=== PATIENT | male | born 1965 ===

== ENCOUNTER 2019-11-06 08:57 | Inpatient (IN) | payer BC ==
[2019-11-06] VITALS (12 sets, daily range): BP systolic 126–146; BP diastolic 63–96
[~2019-11-06] VITALS: Ht 175 cm; Wt 107.2 kg
[~2019-11-06 08:57] MED LIST: AMOX500C2 PO; CPR500T PO; KCL20TCR PO; METR500T PO; OMEP20CA6 PO; TRM50T PO
[2019-11-06 09:36] LABS: BASOPHILS % (AUTO) 0 % (0-10); EOSINOPHILS % (AUTO) 0 % (0-10); HEMATOCRIT 46 % (40-54); LYMPHOCYTES # (AUTO) 1.1 X 10^3 (1.0-4.0); LYMPHOCYTES % (AUTO) 10 % (12-44); MEAN CORPUSCULAR HEMOGLOBIN 29 PG (25-34); MEAN CORPUSCULAR HGB CONC 35 G/DL (32-36); MEAN CORPUSCULAR VOLUME 85 FL (80-99); MEAN PLATELET VOLUME 9.7 FL (7.4-10.4); MONOCYTES # (AUTO) 0.8 X 10^3 (0.0-1.0); MONOCYTES % (AUTO) 7 % (0-12); NEUTROPHILS # (AUTO) 8.9 X 10^3 (1.8-7.8); NEUTROPHILS % (AUTO) 83 % (42-75); PLATELET COUNT 259 10^3/uL (130-400); RED CELL DISTRIBUTION WIDTH 12.8 % (10.0-14.5); WHITE BLOOD COUNT 10.8 10^3/uL (4.3-11.0)
[2019-11-06 09:50] LABS: ALBUMIN 3.6 GM/DL (3.2-4.5); CHLORIDE 105 MMOL/L (98-107); POTASSIUM 3.8 MMOL/L (3.6-5.0); SODIUM 138 MMOL/L (135-145)
--- NOTE | 2019-11-06 09:50 | NUR ---
[employer] NOTIFIED THIS PT WILL NEED A ICU BED WHEN HE IS ADMITTED.
[2019-11-06 09:51] LABS: CALCIUM 8.7 MG/DL (8.5-10.1)
[2019-11-06 09:52] LABS: GLUCOSE 124 MG/DL (70-105); TOTAL PROTEIN 7.3 GM/DL (6.4-8.2)
[2019-11-06 09:53] LABS: CARBON DIOXIDE 22 MMOL/L (21-32)
[2019-11-06 09:54] LABS: BILIRUBIN,TOTAL 0.6 MG/DL (0.1-1.0)
--- NOTE | 2019-11-06 09:55 | ED General ---
General Chief Complaint: Respiratory Problems Stated Complaint: COVID+ Nursing Triage Note: ARRIVED VIA AMB TO COVID ER. SICK X10 DAYS ET WORSE SOA IN THE LAST TWO. COVID POSITIVE ET WAS TESTED LAST WEEK. PT STATES HE WORKS AT [employer] [place] . 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 Symptoms are worsening with increased shortness of breath and pleuritic chest pain. He is very tachypneic on exam with respiration rate around 50 breaths per minute. Oxygen saturation is running 89-90 percent on room air. Patient denies having any other significant health issues. 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 Allergies and Home Medications Allergies Coded Allergies: No Known Drug Allergies (Unverified , 11/06/19) Patient Home Medication List Home Medication List Reviewed: Yes Review of Systems Review of Systems Constitutional: no symptoms reported EENTM: no symptoms reported Respiratory: see HPI Cardiovascular: other (tachycardia) Gastrointestinal: no symptoms reported Genitourinary: no symptoms reported Musculoskeletal: other (upper body myalgias) Skin: no symptoms reported Psychiatric/Neurological: No Symptoms Reported Hematologic/Lymphatic: No Symptoms Reported Immunological/Allergic: no symptoms reported Past Gbnpnhl-Rwwxhc-Wnzqou Hx Past Med/Social Hx: Reviewed Nursing Past Med/Soc Hx Patient Social History Recent Foreign Travel: No Contact w/Someone Who Travel: No Recent Infectious Disease Expo: No Recent Hopitalizations: No Seasonal Allergies Seasonal Allergies: No Past Medical History Surgeries: Yes Abdominal Respiratory: No Cardiac: No Neurological: No Genitourinary: No Gastrointestinal: Yes (GASTRITIS) Endocrine: No HEENT: No Cancer: No Psychosocial: No Integumentary: No Physical Exam-Suspected Sepsis Physical Exam Vital Signs Vital Signs - First Documented 11/06/19 09:00 Temp 36.9 Pulse 95 Resp 55 B/P (MAP) 141/103 (116) Pulse Ox 95 O2 Delivery Nasal Cannula O2 Flow Rate 5.00 Capillary Refill : Less Than 3 Seconds Blood Pressure Mean: 116 Height, Weight, BMI Height: '" Weight: lbs. oz. 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 as Tested Skin: normal color, warm/dry Focused Exam Lactate Level 11/06/19 09:25: Lactic Acid Level 0.93 Lactic Acid Level Laboratory Tests Test 11/06/19 09:25 Lactic Acid Level 0.93 MMOL/L (0.50-2.00) Progress/Results/Core Measures Suspected Sepsis Recent Fever Within 48 Hours: No Infection Criteria Present: Suspected New Infection New/Unexplained Altered Menta: No Sepsis Screen: Possible Sepsis Risk SIRS Temperature: Pulse: 95 Respiratory Rate: 55 Laboratory Tests 11/06/19 09:25: White Blood Count 10.8 Blood Pressure 141 /103 Mean: 116 11/06/19 09:25: Lactic Acid Level 0.93 Laboratory Tests 11/06/19 09:25: Creatinine 0.82, INR Comment 1.0, Platelet Count 259, Total Bilirubin 0.6 Results/Orders Lab Results Laboratory Tests Test 11/06/19 09:25 Range/Units White Blood Count 10.8 4.3-11.0 10^3/uL Red Blood Count 5.45 4.35-5.85 10^6/uL Hemoglobin 16.0 13.3-17.7 G/DL Hematocrit 46 40-54 % Mean Corpuscular Volume 85 80-99 FL Mean Corpuscular Hemoglobin 29 25-34 PG Mean Corpuscular Hemoglobin Concent 35 32-36 G/DL Red Cell Distribution Width 12.8 10.0-14.5 % Platelet Count 259 130-400 10^3/uL Mean Platelet Volume 9.7 7.4-10.4 FL Neutrophils (%) (Auto) 83 H 42-75 % Lymphocytes (%) (Auto) 10 L 12-44 % Monocytes (%) (Auto) 7 0-12 % Eosinophils (%) (Auto) 0 0-10 % Basophils (%) (Auto) 0 0-10 % Neutrophils # (Auto) 8.9 H 1.8-7.8 X 10^3 Lymphocytes # (Auto) 1.1 1.0-4.0 X 10^3 Monocytes # (Auto) 0.8 0.0-1.0 X 10^3 Eosinophils # (Auto) 0.0 0.0-0.3 10^3/uL Basophils # (Auto) 0.0 0.0-0.1 10^3/uL Prothrombin Time 13.4 12.2-14.7 SEC INR Comment 1.0 0.8-1.4 Activated Partial Thromboplast Time 30 24-35 SEC D-Dimer 1.15 H 0.00-0.49 UG/ML Sodium Level 138 135-145 MMOL/L Potassium Level 3.8 3.6-5.0 MMOL/L Chloride Level 105 98-107 MMOL/L Carbon Dioxide Level 22 21-32 MMOL/L Anion Gap 11 5-14 MMOL/L Blood Urea Nitrogen 7 7-18 MG/DL Creatinine 0.82 0.60-1.30 MG/DL Estimat Glomerular Filtration Rate > 60 BUN/Creatinine Ratio 9 Glucose Level 124 H 70-105 MG/DL Lactic Acid Level 0.93 0.50-2.00 MMOL/L Calcium Level 8.7 8.5-10.1 MG/DL Corrected Calcium 9.0 8.5-10.1 MG/DL Total Bilirubin 0.6 0.1-1.0 MG/DL Aspartate Amino Transf (AST/SGOT) 126 H 5-34 U/L Alanine Aminotransferase (ALT/SGPT) 122 H 0-55 U/L Alkaline Phosphatase 83 40-136 U/L Lactate Dehydrogenase 585 H 125-220 U/L C-Reactive Protein High Sensitivity 19.34 H 0.00-0.50 MG/DL Total Protein 7.3 6.4-8.2 GM/DL Albumin 3.6 3.2-4.5 GM/DL Procalcitonin 0.16 H <0.10 NG/ML My Orders Junior - COLLIN KNIGHT MD Fibrin Degradation Products (11/06/19 09:25) Procalcitonin (Pct) (11/06/19 09:25) Hs C Reactive Protein (11/06/19 09:25) LDH (11/06/19 09:25) Cbc With Automated Diff (11/06/19 09:25) Comprehensive Metabolic Panel (11/06/19 09:25) Blood Culture (11/06/19 09:25) Sputum Culture (11/06/19 09:25) Protime With Inr (11/06/19 09:25) Partial Thromboplastin Time (11/06/19 09:25) Ed Iv/Invasive Line Start (11/06/19 09:25) Vital Signs Adult Sepsis Patie Q15M (11/06/19 09:25) O2 (11/06/19 09:25) Remove Rings In Anticipation O (11/06/19 09:25) Lactic Acid Analyzer (11/06/19 09:25) Acetaminophen Tablet (Tylenol Tablet) (11/06/19 10:00) Covid-19 External Lab Results (11/06/19 10:14) Isolation Central Supply Req (11/06/19 10:14) Ct Angio Chest W (11/06/19 10:28) Iohexol Injection (Omnipaque 350 Mg/Ml 1 (11/06/19 10:45) Received Contrast (Hold Metformin- Contr (11/06/19 10:45) Sodium Chloride Flush (Catheter Flush Sy (11/06/19 10:45) Ns (Ivpb) (Sodium Chloride 0.9% Ivpb Bag (11/06/19 10:45) Iohexol Injection (Omnipaque 350 Mg/Ml 1 (11/06/19 10:45) Ns (Ivpb) (Sodium Chloride 0.9% Ivpb Bag (11/06/19 10:45) Medications Given in ED Current Medications Medications Dose Ordered Sig/Clayton Route Start Time Stop Time Status Last Admin Dose Admin Acetaminophen 1,000 mg ONCE ONCE PO 11/06/19 10:00 11/06/19 10:01 DC 11/06/19 10:10 1,000 MG Iohexol 100 ml ONCE ONCE IV 11/06/19 10:45 11/06/19 10:46 DC 11/06/19 10:49 83 ML Sodium Chloride 100 ml ONCE ONCE IV 11/06/19 10:45 11/06/19 10:46 DC 11/06/19 10:51 80 ML Vital Signs/I&O 11/06/19 11/06/19 11/06/19 09:00 09:00 12:46 Temp 36.9 Pulse 95 71 Resp 55 16 B/P (MAP) 141/103 (116) 126/87 Pulse Ox 95 91 96 O2 Delivery Nasal Cannula Nasal Cannula O2 Flow Rate 5.00 5.00 Capillary Refill : Less Than 3 Seconds Blood Pressure Mean: 116 Progress Note : Progress Note Patient remained stable on oxygen by nasal cannula at 4 L/m. Labs were consistent with COVID-19 patterns. D-dimer was elevated and CT angiogram was obtained. There were no pulmonary emboli. CT findings consistent with pneumonia and/or COVID-19. Case was discussed with Dr. Elias who will likely start steroids and antiviral therapy in the ICU. Diagnostic Imaging Diagonstic Imaging: CT Plain Films/CT/US/NM/MRI: chest Comments CT angiogram of the chest viewed by me and report reviewed. Discussed with the radiologist. See report below: NAME: TREVON GALICIA REC#: [id number] PT STATUS: REG ER : 1965 PHYSICIAN: COLLIN KNIGHT MD ADMIT DATE: 11/06/19/ER Signed Date of Exam:11/06/19 CT ANGIO CHEST W PROCEDURE: CT angiography of the chest with contrast. TECHNIQUE: Multiple contiguous axial images were obtained through the chest after uneventful bolus administration of intravenous contrast. 3D reconstructed CTA MIP acquisitions were also performed. Auto Exposure Controls were utilized during the CT exam to meet ALARA standards for radiation dose reduction. INDICATION: Shortness of breath, dyspnea Study compared to 08/08/2013. There are extensive 5 lobe largely groundglass pulmonary infiltrates. Within the right greater than left lower lobes there is some jacob airspace consolidation as well as scattered zones of volume loss and subsegmental atelectasis. There is no associated pleural effusion. No pneumatocele. No bronchiectasis. No blebs or bullous disease. Lung volumes symmetric and within normal limits. Some mild bilateral likely reactive hilar lymphadenopathy. The aorta is patent and nonaneurysmal. There is no pleural or pericardial effusion. There is a small hiatal hernia. Visualized upper abdomen revealed no free fluid, free air or obstructive features. The pulmonary arterial branches patent no evidence for PE IMPRESSION: Extensive 5 lobe largely groundglass infiltrates as a nonspecific finding but can be compatible with multifocal pneumonia on the basis of the known COVID-positivity. In addition there is some airspace dependent consolidative changes in both lower lobes as well as mild likely reactive lymphadenopathy and no chest effusion. Negative for pulmonary embolus. Dictated by: Dictated on workstation # [id number] Dict: 11/06/19 1106 Trans: 11/06/19 1135 [facility] [id number] Interpreted by: GAEL VELÁZQUEZ Electronically signed by: GAEL VELÁZQUEZ 11/06/19 1135 Departure Communication (Admissions) Time/Spoke to Admitting Phy: 11:45 Dr. Lockwood Time/Spoke to Consulting Phy: 11:38 Dr. Elias Impression Primary Impression: Coronavirus infection Additional Impression: Respiratory failure Qualified Codes: J96.01 - Acute respiratory failure with hypoxia Disposition: ADMITTED INPATIENT Condition: Stable Admissions Decision to Admit Reason: Admit from ER (General) Decision to Admit/Date: Nov 06, 2019 Time/Decision to Admit Time: 09:20 COLLIN KNIGHT MD Nov 06, 2019 09:55
[2019-11-06 09:56] LABS: ALKALINE PHOSPHATASE 83 U/L (40-136); CREATININE SERUM 0.82 MG/DL (0.60-1.30); GFR ESTIMATED > 60
[2019-11-06 09:57] LABS: BUN/CREATININE RATIO 9; FIBRIN DEGRADATION PRODUCTS 1.15 UG/ML (0.00-0.49); PROTHROMBIN TIME PATIENT 13.4 SEC (12.2-14.7)
[2019-11-06 09:59] LABS: ALANINE AMINOTRANSFERASE 122 U/L (0-55)
[2019-11-06] MEDS ORDERED: ACETAMINOPHEN 500 MG TAB (TYLENOL) PO ONE (10:00)
--- OUTSIDE RECORDS SUMMARY | 2019-11-06 10:05 | XMS REPORT | Continuity of Care Document ---
Author Organization Unknown Address Unknown Phone Unavailable Allergies There is no data. Medications There is no data. Problems There is no data. Procedures There is no data. Results There is no data. Encounters ACCT No. Visit Date/Time Discharge Status Pt. Type Provider Facility Loc./Unit Complaint [id number] 08/04/2013 14:10:00 00:01:00 DIS Outpatient [id number] 08/18/2013 09:07:00 23:59:59 CLS Outpatient [id number] 08/08/2013 08:45:00 23:59:59 CLS Outpatient
--- NOTE | 2019-11-06 10:20 | NUR ---
PT RESTING IN BED. RESP APPX 40/MIN. PULSE OX 96% ON 2L. MESSAGE LEFT FOR DR KNIGHT ABOUT THE HIGH D-DIMER. PT DENIES NEEDS AT THIS TIME.
[2019-11-06] MEDS ORDERED: HOLD METFORMIN - RECEIVED CONTRAST 20 ML VIAL IV SCH ×2 (10:45)
[2019-11-06] MEDS ORDERED: CATHETER FLUSH 10 ML SYR IV PRN (10:45)
[2019-11-06] MEDS ORDERED: IOHEXOL 350 MG/ML 100 ML (OMNIPAQUE 350) VIAL IV ONE ×2 (10:45)
[2019-11-06] MEDS ORDERED: NS 100 ML (IVPB) BAG IV ONE ×2 (10:45)
--- NOTE | 2019-11-06 11:14 | Diagnostic Imaging Report ---
PROCEDURE: CT angiography of the chest with contrast. TECHNIQUE: Multiple contiguous axial images were obtained through the chest after uneventful bolus administration of intravenous contrast. 3D reconstructed CTA MIP acquisitions were also performed. Auto Exposure Controls were utilized during the CT exam to meet ALARA standards for radiation dose reduction. INDICATION: Shortness of breath, dyspnea Study compared to 08/08/2013. There are extensive 5 lobe largely groundglass pulmonary infiltrates. Within the right greater than left lower lobes there is some jacob airspace consolidation as well as scattered zones of volume loss and subsegmental atelectasis. There is no associated pleural effusion. No pneumatocele. No bronchiectasis. No blebs or bullous disease. Lung volumes symmetric and within normal limits. Some mild bilateral likely reactive hilar lymphadenopathy. The aorta is patent and nonaneurysmal. There is no pleural or pericardial effusion. There is a small hiatal hernia. Visualized upper abdomen revealed no free fluid, free air or obstructive features. The pulmonary arterial branches patent no evidence for PE IMPRESSION: Extensive 5 lobe largely groundglass infiltrates as a nonspecific finding but can be compatible with multifocal pneumonia on the basis of the known COVID-positivity. In addition there is some airspace dependent consolidative changes in both lower lobes as well as mild likely reactive lymphadenopathy and no chest effusion. Negative for pulmonary embolus. Dictated by: Dictated on workstation # [id number]
--- NOTE | 2019-11-06 11:30 | NUR ---
RESTING IN BED WITH EYES CLOSED.
--- NOTE | 2019-11-06 11:43 | NUR ---
ATTEMPT TO CALL REPORT ET NURSE UNAVAILABLE AT THIS TIME.
--- NOTE | 2019-11-06 11:48 | NUR ---
LANGUAGE LINE USED TO NOTIFY PT HE WOULD BE ADMITTED TO THE ICU.
[2019-11-06] MEDS ORDERED: ONDANSETRON 4 MG/2 ML (SDV) Z0FRAN IV PRN (12:15)
[2019-11-06] MEDS ORDERED: ACETAMINOPHEN 500 MG TAB (TYLENOL) PO PRN (12:15)
--- NOTE | 2019-11-06 12:15 | NUR ---
REPORT GIVEN. ICU TO COME TRANSFER.
--- OUTSIDE RECORDS SUMMARY | 2019-11-06 13:34 | XMS REPORT | Continuity of Care Document ---
Author Organization Unknown Address Unknown Phone Unavailable Allergies There is no data. Medications There is no data. Problems There is no data. Procedures There is no data. Results There is no data. Encounters ACCT No. Visit Date/Time Discharge Status Pt. Type Provider Facility Loc./Unit Complaint [id number] 08/04/2013 14:10:00 00:01:00 DIS Outpatient [id number] 08/18/2013 09:07:00 014 23:59:59 CLS Outpatient [id number] 08/08/2013 08:45:00 23:59:59 CLS Outpatient [id number] 11/06/2019 11:55:[address] Inpatient MICHELLE MCCLAIN, [facility] ICU COVID 19,RESPIRATORY FAILURE
[2019-11-06] MEDS ORDERED: DEXAMETHASONE 4 MG/ML SDV (DECADRON) IV NR (14:15)
[2019-11-06] MEDS ORDERED: IBUPROFEN 600 MG (MOTRIN) TAB PO PRN (14:15)
[2019-11-06] MEDS ORDERED: morphine INJ 4 MG/ML 1 ML (VIAL/SYRINGE) IVP PRN (14:15)
--- NOTE | 2019-11-06 14:15 | Pulmonary Consultation ---
History of Present Illness History of Present Illness Date Seen by Provider: Nov 06, 2019 Time Seen by Provider: 14:10 Date of Admission History of Present Illness 54yo non-Divehi speaking presented to ED secondary to worsening SOB and pleuritic CP. Pt tested positive for COVID last week. Pt works at [employer] in . Pt was found to be hypoxic while in the ED. Allergies and Home Medications Allergies Coded Allergies: No Known Drug Allergies (Unverified , 11/06/19) Past Czhielq-Ylqhqx-Qtbksn Hx Past Med/Social Hx: Reviewed Nursing Past Med/Soc Hx Patient Social History Recent Foreign Travel: No Contact w/Someone Who Travel: No Recent Infectious Disease Expo: No Recent Hopitalizations: No Seasonal Allergies Seasonal Allergies: No Past Medical History Surgeries: Yes Abdominal Respiratory: No Cardiac: No Neurological: No Genitourinary: No Gastrointestinal: Yes (GASTRITIS) Endocrine: No HEENT: No Cancer: No Psychosocial: No Integumentary: No Sepsis Event Evaluation Height, Weight, BMI Height: '" Weight: lbs. oz. kg; 33.00 BMI Method: Exam Exam Vital Signs Date Time Temp Pulse Resp B/P (MAP) Pulse Ox O2 Delivery O2 Flow Rate FiO2 11/06/19 13:30 Nasal Cannula 5.00 11/06/19 13:00 36.4 11/06/19 12:52 85 11/06/19 12:46 71 16 126/87 96 Nasal Cannula 5.00 11/06/19 09:00 91 Nasal Cannula 5.00 11/06/19 09:00 36.9 95 55 141/103 (116) 95 Height & Weight Height: '" Weight: lbs. oz. 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
[2019-11-06] MEDS ORDERED: DEXAMETHASONE 10 MG/ML (DECADRON) 1 ML VIAL IV NR (14:25)
[2019-11-06] MEDS ORDERED: ALBUTEROL/IPRATROP (COMBIVENT RESPIMAT) 4 GM INHALER IH SCH (14:28)
[2019-11-06 14:45] LABS: ABG BASE EXCESS -0.4 MMOL/L (-2.5-2.5); ABG OXYGEN SATURATION 95 % (94-100); ABG PCO2 33 MMHG (35-45); ABG PH 7.46 (7.37-7.43); ABG PO2 70 MMHG (79-93); ABG TCO2 24.1 MMOL/L (21.0-31.0)
[2019-11-06 14:46] LABS: ALLENS TEST YES-POS; INSPIRED O2 5; PATIENT TEMP 36.4; VENTILATOR NO
[2019-11-06] MEDS ORDERED: RT-ALBUTEROL INHALER HFA (VENTOLIN HFA) 8 GM IH PRN (15:00)
--- NOTE | 2019-11-06 15:45 | NUR ---
WHEN I WAS ON 5TH FLOOR THE NURSE (DA) LET ME KNOW SHE ALREADY SPOKE WITH THE PT AND HE DOESNT TAKE ANY MEDICATIONS.
[2019-11-06] MEDS: ENOXAPARIN 40 MG/0.4 ML (LOVENOX) SYR SC SCH (17:34)
[2019-11-06] MEDS: ALBUTEROL/IPRATROP (COMBIVENT RESPIMAT) 4 GM INHALER INH SCH (18:48)
[2019-11-07] VITALS (24 sets, daily range): BP systolic 106–142; BP diastolic 67–97
[2019-11-07 02:58] LABS: BASOPHILS % (AUTO) 0 % (0-10); EOSINOPHILS # (AUTO) 0.2 10^3/uL (0.0-0.3); EOSINOPHILS % (AUTO) 2 % (0-10); HEMATOCRIT 44 % (40-54); HEMOGLOBIN 14.8 G/DL (13.3-17.7); LYMPHOCYTES # (AUTO) 1.4 X 10^3 (1.0-4.0); LYMPHOCYTES % (AUTO) 16 % (12-44); MEAN CORPUSCULAR HEMOGLOBIN 29 PG (25-34); MEAN CORPUSCULAR HGB CONC 33 G/DL (32-36); MEAN CORPUSCULAR VOLUME 87 FL (80-99); MEAN PLATELET VOLUME 9.9 FL (7.4-10.4); MONOCYTES % (AUTO) 11 % (0-12); NEUTROPHILS # (AUTO) 6.3 X 10^3 (1.8-7.8); NEUTROPHILS % (AUTO) 71 % (42-75); PLATELET COUNT 283 10^3/uL (130-400); RED CELL DISTRIBUTION WIDTH 12.8 % (10.0-14.5); WHITE BLOOD COUNT 8.9 10^3/uL (4.3-11.0)
[2019-11-07 03:07] LABS: ALBUMIN 3.2 GM/DL (3.2-4.5); CHLORIDE 103 MMOL/L (98-107); POTASSIUM 4.3 MMOL/L (3.6-5.0); SODIUM 137 MMOL/L (135-145)
[2019-11-07 03:08] LABS: CALCIUM 8.7 MG/DL (8.5-10.1)
[2019-11-07 03:10] LABS: GLUCOSE 107 MG/DL (70-105)
[2019-11-07 03:11] LABS: BILIRUBIN,TOTAL 0.5 MG/DL (0.1-1.0); CARBON DIOXIDE 21 MMOL/L (21-32)
[2019-11-07 03:13] LABS: ALKALINE PHOSPHATASE 85 U/L (40-136); CREATININE SERUM 0.94 MG/DL (0.60-1.30); GFR ESTIMATED > 60; PHOSPHORUS 3.5 MG/DL (2.3-4.7)
[2019-11-07 03:14] LABS: BUN/CREATININE RATIO 12
[2019-11-07 03:16] LABS: ALANINE AMINOTRANSFERASE 160 U/L (0-55); MAGNESIUM 2.3 MG/DL (1.6-2.4)
--- NOTE | 2019-11-07 05:09 | Diagnostic Imaging Report ---
Indication: Shortness of breath Portable chest 3:41 AM Heart size and pulmonary vascularity are normal. There are peripheral infiltrates in both lungs. There are no effusions or pneumothoraces. IMPRESSION: Diffuse pulmonary infiltrates appear slightly worse compared to the previous day's CT. Dictated by: Dictated on workstation # [id number]
--- NOTE | 2019-11-07 05:44 | Pulmonary Progress Note ---
Subjective Time Seen by a Provider: 05:42 Subjective/Events-last exam Pt is self proning currently only requiring 5 liters NC. Sepsis Event Evaluation Height, Weight, BMI Height: '" Weight: lbs. oz. kg; 33.00 BMI Method: Focused Exam Lactate Level 11/06/19 09:25: Lactic Acid Level 0.93 Exam Exam Vital Signs Date Time Temp Pulse Resp B/P (MAP) Pulse Ox O2 Delivery O2 Flow Rate FiO2 11/07/19 04:00 70 123/86 (98) 100 Nasal Cannula 5.00 11/07/19 03:00 77 138/84 (102) 95 Nasal Cannula 5.00 11/07/19 02:00 82 14 126/78 (94) 98 Nasal Cannula 5.00 11/07/19 01:00 84 11/07/19 01:00 84 25 121/71 (88) 96 Nasal Cannula 5.00 11/07/19 00:00 35.4 11/07/19 00:00 84 19 118/78 (91) 95 Nasal Cannula 5.00 11/07/19 00:00 91 Nasal Cannula 5.00 11/06/19 23:00 86 126/75 (92) 95 Nasal Cannula 5.00 11/06/19 22:00 86 145/94 (111) 95 Nasal Cannula 5.00 11/06/19 21:00 84 23 126/83 (97) 95 Nasal Cannula 5.00 11/06/19 20:00 35.4 85 16 146/96 (113) 94 Nasal Cannula 5.00 11/06/19 20:00 91 Nasal Cannula 5.00 11/06/19 19:00 98 11/06/19 19:00 98 137/91 (106) 95 Nasal Cannula 5.00 11/06/19 18:31 93 Nasal Cannula 5.00 11/06/19 18:00 85 16 135/93 (107) 92 Nasal Cannula 5.00 11/06/19 17:06 36.8 11/06/19 17:00 86 39 129/85 (100) 94 Nasal Cannula 5.00 11/06/19 16:59 91 Nasal Cannula 5.00 11/06/19 16:00 82 17 126/75 (92) 96 Nasal Cannula 5.00 11/06/19 15:00 77 14 137/91 (106) 94 Nasal Cannula 5.00 11/06/19 14:42 Nasal Cannula 5.00 11/06/19 14:00 74 12 128/90 (103) 95 Nasal Cannula 5.00 11/06/19 13:30 Nasal Cannula 5.00 11/06/19 13:00 88 51 134/63 (86) 93 Nasal Cannula 5.00 11/06/19 13:00 36.4 11/06/19 12:52 85 11/06/19 12:46 71 16 126/87 96 Nasal Cannula 5.00 11/06/19 12:45 130/80 (97) 11/06/19 09:00 91 Nasal Cannula 5.00 11/06/19 09:00 36.9 95 55 141/103 (116) 95 I & O 11/07/19 07:00 Intake Total 1460 ml Output Total 1275 ml Balance 185 ml Height & Weight Height: '" Weight: lbs. oz. 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
[2019-11-07] MEDS: POTASSIUM CL 10MEQ/50ML IVPB 50 ML IV SCH (06:03)
[2019-11-07] MEDS: KCL 20 MEQ TAB (K-DUR) PO SCH (06:04)
[2019-11-07] MEDS: MAGNESIUM 1 GM/100 ML IVPB 100 ML IV SCH (06:04)
[2019-11-07] MEDS: ALBUTEROL/IPRATROP (COMBIVENT RESPIMAT) 4 GM INHALER INH SCH ×4 (06:40→18:32)
--- NOTE | 2019-11-07 07:40 | Pulmonary Progress Note ---
Sepsis Event Evaluation Height, Weight, BMI Height: '" Weight: lbs. oz. kg; 33.00 BMI Method: Focused Exam Lactate Level 11/06/19 09:25: Lactic Acid Level 0.93 Exam Exam Vital Signs Date Time Temp Pulse Resp B/P (MAP) Pulse Ox O2 Delivery O2 Flow Rate FiO2 11/07/19 06:40 98 Nasal Cannula 5.00 11/07/19 06:00 73 32 136/85 (102) 91 Nasal Cannula 5.00 11/07/19 05:00 68 15 119/79 (92) 99 Nasal Cannula 5.00 11/07/19 04:00 91 Nasal Cannula 5.00 11/07/19 04:00 70 123/86 (98) 100 Nasal Cannula 5.00 11/07/19 04:00 36.8 11/07/19 03:00 77 138/84 (102) 95 Nasal Cannula 5.00 11/07/19 02:00 82 14 126/78 (94) 98 Nasal Cannula 5.00 11/07/19 01:00 84 11/07/19 01:00 84 25 121/71 (88) 96 Nasal Cannula 5.00 11/07/19 00:00 35.4 11/07/19 00:00 84 19 118/78 (91) 95 Nasal Cannula 5.00 11/07/19 00:00 91 Nasal Cannula 5.00 11/06/19 23:00 86 126/75 (92) 95 Nasal Cannula 5.00 11/06/19 22:00 86 145/94 (111) 95 Nasal Cannula 5.00 11/06/19 21:00 84 23 126/83 (97) 95 Nasal Cannula 5.00 11/06/19 20:00 35.4 85 16 146/96 (113) 94 Nasal Cannula 5.00 11/06/19 20:00 91 Nasal Cannula 5.00 11/06/19 19:00 98 11/06/19 19:00 98 137/91 (106) 95 Nasal Cannula 5.00 11/06/19 18:31 93 Nasal Cannula 5.00 11/06/19 18:00 85 16 135/93 (107) 92 Nasal Cannula 5.00 11/06/19 17:06 36.8 11/06/19 17:00 86 39 129/85 (100) 94 Nasal Cannula 5.00 11/06/19 16:59 91 Nasal Cannula 5.00 11/06/19 16:00 82 17 126/75 (92) 96 Nasal Cannula 5.00 11/06/19 15:00 77 14 137/91 (106) 94 Nasal Cannula 5.00 11/06/19 14:42 Nasal Cannula 5.00 11/06/19 14:00 74 12 128/90 (103) 95 Nasal Cannula 5.00 11/06/19 13:30 Nasal Cannula 5.00 11/06/19 13:00 88 51 134/63 (86) 93 Nasal Cannula 5.00 11/06/19 13:00 36.4 11/06/19 12:52 85 11/06/19 12:46 71 16 126/87 96 Nasal Cannula 5.00 11/06/19 12:45 130/80 (97) 11/06/19 09:00 91 Nasal Cannula 5.00 11/06/19 09:00 36.9 95 55 141/103 (116) 95 I & O 11/07/19 07:00 Intake Total 1810 ml Output Total 1275 ml Balance 535 ml Height & Weight Height: '" Weight: lbs. oz. 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
[2019-11-07] MEDS: DEXAMETHASONE 10 MG/ML (DECADRON) 1 ML VIAL IV SCH (08:07)
[2019-11-07] MEDS: PANTOPRAZOLE 40 MG (PROTONIX) VIAL IV SCH (08:07)
--- NOTE | 2019-11-07 13:26 | NUR ---
SPOKE WITH PTS DAUGHTER WITH PATIENT TO HELP TRANSLATE AT 1200. PT IS ABLE TO COMMUNICATE WITH SIMPLE ANGUILLAN WORDS AND ANSWERS YES AND NO. WHILE SLEEPING PT RR 40-48. PT REPORTS NO SOA. ONLY COMPLAINT IS A SHOCK TYPE SENSATION IN HIS ABDOMEN WHEN HE TRIES TO SLEEP. HE STATES HIS BREATHING FEELS "GOOD". PT EDUCATED ON NEED TO PRONE WHILE IN ROOM AND THIS RN WOULD ASSIST HIM. HE LAYING TO HIS LEFT SIDE AT THIS TIME. HE REPORTS NO CONCERNS OR NEEDS AT THIS TIME. OXYGEN SATS 93-95 ON 3 LPM VIA NC. AT 1326, PT IS SITTING UP IN BED EATING LUNCH AND WATCHING TV. HE GIVES ME THE THUMBS UP SIGN. DR CHAUDHRY WAS ON THE UNIT NOTIFIED OF INCREASE IN RR. ADVISED THAT IF OXYGEN NEED IS THE SAME, MAY ADMINISTER MORPHINE.
[2019-11-07] MEDS: ENOXAPARIN 40 MG/0.4 ML (LOVENOX) SYR SC SCH (15:08)
[2019-11-07] MEDS ORDERED: ALBUTEROL/IPRATROP (COMBIVENT RESPIMAT) 4 GM INHALER INH SCH (19:00)
[2019-11-08] VITALS (14 sets, daily range): BP systolic 107–144; BP diastolic 68–97
[2019-11-08 04:41] LABS: BASOPHILS % (AUTO) 0 % (0-10); EOSINOPHILS % (AUTO) 0 % (0-10); HEMATOCRIT 47 % (40-54); HEMOGLOBIN 15.9 G/DL (13.3-17.7); LYMPHOCYTES # (AUTO) 1.2 X 10^3 (1.0-4.0); LYMPHOCYTES % (AUTO) 12 % (12-44); MEAN CORPUSCULAR HEMOGLOBIN 29 PG (25-34); MEAN CORPUSCULAR HGB CONC 34 G/DL (32-36); MEAN CORPUSCULAR VOLUME 86 FL (80-99); MEAN PLATELET VOLUME 9.6 FL (7.4-10.4); MONOCYTES # (AUTO) 1.3 X 10^3 (0.0-1.0); MONOCYTES % (AUTO) 13 % (0-12); NEUTROPHILS # (AUTO) 7.5 X 10^3 (1.8-7.8); NEUTROPHILS % (AUTO) 75 % (42-75); PLATELET COUNT 420 10^3/uL (130-400); RED CELL DISTRIBUTION WIDTH 12.7 % (10.0-14.5); WHITE BLOOD COUNT 10.1 10^3/uL (4.3-11.0)
[2019-11-08 04:46] LABS: ALBUMIN 3.4 GM/DL (3.2-4.5); CHLORIDE 106 MMOL/L (98-107); SODIUM 138 MMOL/L (135-145)
[2019-11-08 04:48] LABS: GLUCOSE 132 MG/DL (70-105); TOTAL PROTEIN 7.2 GM/DL (6.4-8.2)
[2019-11-08 04:49] LABS: CARBON DIOXIDE 20 MMOL/L (21-32)
[2019-11-08 04:50] LABS: BILIRUBIN,TOTAL 0.5 MG/DL (0.1-1.0)
[2019-11-08 04:52] LABS: ALKALINE PHOSPHATASE 92 U/L (40-136); CREATININE SERUM 0.84 MG/DL (0.60-1.30); GFR ESTIMATED > 60; PHOSPHORUS 3.8 MG/DL (2.3-4.7)
[2019-11-08 04:53] LABS: BUN/CREATININE RATIO 17
[2019-11-08 04:55] LABS: ALANINE AMINOTRANSFERASE 154 U/L (0-55); MAGNESIUM 2.4 MG/DL (1.6-2.4)
[2019-11-08] MEDS: KCL 20 MEQ TAB (K-DUR) PO SCH (05:10)
[2019-11-08] MEDS: MAGNESIUM 1 GM/100 ML IVPB 100 ML IV SCH (05:10)
[2019-11-08] MEDS: POTASSIUM CL 10MEQ/50ML IVPB 50 ML IV SCH (05:10)
--- NOTE | 2019-11-08 06:24 | Pulmonary Progress Note ---
Subjective Time Seen by a Provider: 06:24 Subjective/Events-last exam Pt is doing better. Sepsis Event Evaluation Height, Weight, BMI Height: '" Weight: lbs. oz. kg; 33.00 BMI Method: Focused Exam Lactate Level 11/06/19 09:25: Lactic Acid Level 0.93 Exam Exam Vital Signs Date Time Temp Pulse Resp B/P (MAP) Pulse Ox O2 Delivery O2 Flow Rate FiO2 11/08/19 06:00 68 124/74 (91) 94 Nasal Cannula 3.00 11/08/19 05:00 72 16 128/88 (101) 91 Nasal Cannula 3.00 11/08/19 04:00 67 31 120/94 (103) 93 Nasal Cannula 3.00 11/08/19 04:00 35.7 11/08/19 04:00 93 Nasal Cannula 5.00 11/08/19 03:30 64 32 94 Nasal Cannula 3.00 11/08/19 03:00 72 31 121/82 (95) 95 Nasal Cannula 5.00 11/08/19 02:00 63 28 123/77 (92) 95 Nasal Cannula 5.00 11/08/19 01:00 67 11/08/19 01:00 67 34 129/76 (93) 96 Nasal Cannula 5.00 11/08/19 00:00 35.6 11/08/19 00:00 70 123/79 (94) 97 Nasal Cannula 5.00 11/08/19 00:00 93 Nasal Cannula 5.00 11/07/19 22:30 80 130/81 (97) 92 Nasal Cannula 5.00 11/07/19 22:00 77 136/92 (107) 92 Nasal Cannula 5.00 11/07/19 21:00 80 142/88 (106) 92 Nasal Cannula 5.00 11/07/19 20:00 88 141/97 (112) 92 Nasal Cannula 5.00 11/07/19 20:00 35.4 11/07/19 20:00 92 Nasal Cannula 5.00 11/07/19 19:00 89 131/92 (105) 92 Nasal Cannula 5.00 11/07/19 19:00 89 11/07/19 18:44 Nasal Cannula 5.00 11/07/19 18:32 92 Nasal Cannula 5.00 11/07/19 18:00 84 35 132/92 (105) 93 Nasal Cannula 4.00 11/07/19 17:38 36.1 11/07/19 17:00 88 31 131/89 (103) 93 Nasal Cannula 4.00 11/07/19 16:19 92 Nasal Cannula 3.00 11/07/19 16:00 92 42 127/77 (94) 92 Nasal Cannula 4.00 11/07/19 15:00 94 36 129/87 (101) 93 Nasal Cannula 4.00 11/07/19 14:00 85 42 126/83 (97) 94 Nasal Cannula 4.00 11/07/19 13:38 94 Nasal Cannula 3.00 11/07/19 13:00 85 11/07/19 13:00 86 17 120/76 (91) 94 Nasal Cannula 4.00 11/07/19 12:30 95 Nasal Cannula 3.00 11/07/19 12:00 81 17 106/67 (80) 93 Nasal Cannula 4.00 11/07/19 11:00 85 16 128/80 (96) 94 Nasal Cannula 4.00 11/07/19 10:10 94 Nasal Cannula 4.00 11/07/19 10:00 77 23 113/82 (92) 95 Nasal Cannula 4.00 11/07/19 09:00 85 50 125/89 (101) 94 Nasal Cannula 4.00 11/07/19 08:59 Nasal Cannula 4.00 11/07/19 08:17 35.6 11/07/19 08:00 68 23 129/92 (104) 98 Nasal Cannula 5.00 11/07/19 07:40 93 Nasal Cannula 4.00 11/07/19 07:00 74 43 130/82 (98) Nasal Cannula 5.00 11/07/19 06:40 83 11/07/19 06:40 98 Nasal Cannula 5.00 I & O 11/08/19 07:00 Intake Total 2150 ml Output Total 3225 ml Balance -1075 ml Height & Weight Height: '" Weight: lbs. oz. kg; 33.00 BMI Method: General Appearance: WD/WN, Moderate Distress (respiratory, tachypnea) HEENT: PERRL/EOMI, Normal ENT Inspection Neck: Normal Inspection Respiratory: Crackles (basilar), Other (tachypnea) Cardiovascular: No Edema, No Murmur, Normal Peripheral Pulses, Tachycardia Capillary Refill: Less Than 3 Seconds Extremity: Normal Inspection, Non Tender, No Calf Tenderness, No Pedal Edema Neurologic/Psychiatric: Alert, Oriented x3, No Motor/Sensory Deficits, Normal Mood/Affect, eligibility manager II-XII Norm as Tested Results Lab Laboratory Tests 11/06/19 09:25 11/07/19 02:30 11/08/19 04:19 Assessment/Plan Assessment/Plan COVID with extensive bilateral PNA -- Afebrial since admission -Pt is now requiring only 3 liters NC. -Pt tested positive last week as out pt -Works at [employer] [place] - Decadron [email or web address] -Continue awake proning -CTA chest negative for PE -IV is SL. Pt is eating and drinking well. -repeat DDimer and Ferritin levels GI/DVT PPX -Lovenox and Protonix Elevated LFTs- improving -Monitor Hx of gastritis/GERD DVT/GI PPX -Lovenox -Protonix Pt is doing better will transfer to 4th floor and sign off please call me with any questions or concerns. ANSELMO CHAUDHRY DO Nov 08, 2019 06:24
[2019-11-08] MEDS: ALBUTEROL/IPRATROP (COMBIVENT RESPIMAT) 4 GM INHALER INH SCH ×4 (08:11→18:40)
[2019-11-08] MEDS: PANTOPRAZOLE 40 MG (PROTONIX) VIAL IV SCH (08:54)
[2019-11-08] MEDS: DEXAMETHASONE 10 MG/ML (DECADRON) 1 ML VIAL IV SCH (08:55)
--- NOTE | 2019-11-08 10:12 | NUR ---
REPORT RECEIVED FROM CODY DE JESUS, TUNGSTEN TENDER
--- NOTE | 2019-11-08 10:30 | NUR ---
PT ICU TRANSFER TO ROOM 429, TRANSFERRED VIA WHEELCHAIR BY CODY Johnson RN. PT UP IN RECLINER. CALL LIGHT WITHIN REACH.
[2019-11-08] MEDS: ENOXAPARIN 40 MG/0.4 ML (LOVENOX) SYR SC SCH (16:08)
[2019-11-09 01:14] VITALS: BP 133/73
[2019-11-09 04:42] VITALS: BP 132/75
[2019-11-09 05:15] LABS: BASOPHILS % (AUTO) 0 % (0-10); EOSINOPHILS % (AUTO) 0 % (0-10); HEMATOCRIT 46 % (40-54); HEMOGLOBIN 15.7 G/DL (13.3-17.7); LYMPHOCYTES # (AUTO) 1.5 X 10^3 (1.0-4.0); LYMPHOCYTES % (AUTO) 10 % (12-44); MEAN CORPUSCULAR HEMOGLOBIN 29 PG (25-34); MEAN CORPUSCULAR HGB CONC 34 G/DL (32-36); MEAN CORPUSCULAR VOLUME 86 FL (80-99); MEAN PLATELET VOLUME 9.6 FL (7.4-10.4); MONOCYTES # (AUTO) 1.6 X 10^3 (0.0-1.0); MONOCYTES % (AUTO) 11 % (0-12); NEUTROPHILS # (AUTO) 11.3 X 10^3 (1.8-7.8); NEUTROPHILS % (AUTO) 79 % (42-75); PLATELET COUNT 520 10^3/uL (130-400); RED CELL DISTRIBUTION WIDTH 12.6 % (10.0-14.5); WHITE BLOOD COUNT 14.4 10^3/uL (4.3-11.0)
[2019-11-09 05:25] LABS: ALBUMIN 3.3 GM/DL (3.2-4.5); CHLORIDE 105 MMOL/L (98-107); POTASSIUM 4.2 MMOL/L (3.6-5.0); SODIUM 139 MMOL/L (135-145)
[2019-11-09 05:26] LABS: CALCIUM 8.8 MG/DL (8.5-10.1)
[2019-11-09 05:28] LABS: GLUCOSE 125 MG/DL (70-105); TOTAL PROTEIN 7.4 GM/DL (6.4-8.2)
[2019-11-09 05:29] LABS: BILIRUBIN,TOTAL 0.5 MG/DL (0.1-1.0); CARBON DIOXIDE 21 MMOL/L (21-32)
[2019-11-09 05:31] LABS: ALKALINE PHOSPHATASE 102 U/L (40-136); CREATININE SERUM 0.93 MG/DL (0.60-1.30); GFR ESTIMATED > 60; PHOSPHORUS 3.9 MG/DL (2.3-4.7)
[2019-11-09 05:32] LABS: BUN/CREATININE RATIO 23
[2019-11-09 05:34] LABS: ALANINE AMINOTRANSFERASE 229 U/L (0-55); MAGNESIUM 2.3 MG/DL (1.6-2.4)
[2019-11-09 05:37] LABS: BAND NEUTROPHILS 2 %; EOSINOPHILS % (MANUAL) 2 %; LYMPHOCYTES % (MANUAL) 9 %; MONOCYTES % (MANUAL) 7 %; NEUTROPHILS % (MANUAL) 80 %
[2019-11-09] MEDS: KCL 20 MEQ TAB (K-DUR) PO SCH (05:50)
[2019-11-09] MEDS: MAGNESIUM 1 GM/100 ML IVPB 100 ML IV SCH (05:50)
[2019-11-09] MEDS: POTASSIUM CL 10MEQ/50ML IVPB 50 ML IV SCH (05:50)
[2019-11-09] MEDS: ALBUTEROL/IPRATROP (COMBIVENT RESPIMAT) 4 GM INHALER INH SCH ×4 (07:17→20:09)
[2019-11-09 07:53] VITALS: BP 116/71
[2019-11-09] MEDS: PANTOPRAZOLE 40 MG (PROTONIX) VIAL IV SCH (07:56)
[2019-11-09] MEDS: DEXAMETHASONE 10 MG/ML (DECADRON) 1 ML VIAL IV SCH (07:56)
[2019-11-09 12:00] VITALS: BP 124/82
--- NOTE | 2019-11-09 13:55 | Progress Note - Hospitalist ---
Subjective HPI/CC On Admission Date Seen by Provider: Nov 09, 2019 Time Seen by Provider: 13:47 Subjective/Events-last exam Pt reports doing well. Oxygen requirement decreasing. Objective Exam Vital Signs Vital Signs Date Time Temp Pulse Resp B/P (MAP) Pulse Ox O2 Delivery O2 Flow Rate FiO2 11/09/19 12:00 36.2 66 22 124/82 (96) 94 Nasal Cannula 3.50 Capillary Refill : Less Than 3 Seconds General Appearance: No Apparent Distress, WD/WN Respiratory: Lungs Clear, No Respiratory Distress Cardiovascular: Regular Rate, Rhythm, No Murmur Neurologic/Psychiatric: Alert, Oriented x3 Results/Procedures Lab Laboratory Tests 11/09/19 05:05 Patient resulted labs reviewed. Assessment/Plan Assessment and Plan Assess & Plan/Chief Complaint COVID with extensive bilateral PNA -Pt tested positive as out pt. out of window for remdesivir - Continue Decadron -Continue awake proning -CTA chest negative for PE - Continue to wean oxygen as able - Home O2 study Elevated LFTs- - remains elevated, trend Hx of gastritis/GERD -Protonix GI/DVT PPX -Lovenox Clinical Quality Measures DVT/VTE Risk/Contraindication: Risk Factor Score Per Nursin RFS Level Per Nursing on Admit: 4+=Very High DANIEL GARCIA MD Nov 09, 2019 13:55
[2019-11-09] MEDS: ENOXAPARIN 40 MG/0.4 ML (LOVENOX) SYR SC SCH (17:08)
[2019-11-09 20:51] VITALS: BP 141/89
[2019-11-10 01:09] VITALS: BP 136/83
[2019-11-10 04:10] VITALS: BP 147/87
[2019-11-10 05:21] LABS: BASOPHILS # (AUTO) 0.1 10^3/uL (0.0-0.1); BASOPHILS % (AUTO) 1 % (0-10); EOSINOPHILS # (AUTO) 0.1 10^3/uL (0.0-0.3); EOSINOPHILS % (AUTO) 1 % (0-10); HEMATOCRIT 45 % (40-54); HEMOGLOBIN 15.5 G/DL (13.3-17.7); LYMPHOCYTES # (AUTO) 2.1 X 10^3 (1.0-4.0); LYMPHOCYTES % (AUTO) 15 % (12-44); MEAN CORPUSCULAR HEMOGLOBIN 29 PG (25-34); MEAN CORPUSCULAR HGB CONC 34 G/DL (32-36); MEAN CORPUSCULAR VOLUME 86 FL (80-99); MEAN PLATELET VOLUME 9.1 FL (7.4-10.4); MONOCYTES # (AUTO) 1.8 X 10^3 (0.0-1.0); MONOCYTES % (AUTO) 13 % (0-12); NEUTROPHILS # (AUTO) 9.8 X 10^3 (1.8-7.8); NEUTROPHILS % (AUTO) 70 % (42-75); PLATELET COUNT 535 10^3/uL (130-400); RED CELL DISTRIBUTION WIDTH 12.5 % (10.0-14.5)
[2019-11-10 05:30] LABS: ALBUMIN 3.2 GM/DL (3.2-4.5); CHLORIDE 107 MMOL/L (98-107); POTASSIUM 3.9 MMOL/L (3.6-5.0); SODIUM 138 MMOL/L (135-145)
[2019-11-10 05:31] LABS: CALCIUM 8.5 MG/DL (8.5-10.1)
[2019-11-10 05:32] LABS: GLUCOSE 109 MG/DL (70-105); TOTAL PROTEIN 6.6 GM/DL (6.4-8.2)
[2019-11-10 05:33] LABS: CARBON DIOXIDE 21 MMOL/L (21-32)
[2019-11-10 05:34] LABS: BILIRUBIN,TOTAL 0.5 MG/DL (0.1-1.0)
[2019-11-10 05:35] LABS: PHOSPHORUS 3.6 MG/DL (2.3-4.7)
[2019-11-10 05:36] LABS: ALKALINE PHOSPHATASE 91 U/L (40-136); GFR ESTIMATED > 60
[2019-11-10 05:37] LABS: BUN/CREATININE RATIO 30
[2019-11-10 05:39] LABS: ALANINE AMINOTRANSFERASE 290 U/L (0-55); MAGNESIUM 2.2 MG/DL (1.6-2.4)
[2019-11-10] MEDS: POTASSIUM CL 10MEQ/50ML IVPB 50 ML IV SCH (06:18)
[2019-11-10] MEDS: KCL 20 MEQ TAB (K-DUR) PO SCH (06:18)
[2019-11-10] MEDS: MAGNESIUM 1 GM/100 ML IVPB 100 ML IV SCH (06:18)
[2019-11-10 08:04] VITALS: BP 148/80
[2019-11-10] MEDS: DEXAMETHASONE 10 MG/ML (DECADRON) 1 ML VIAL IV SCH (08:08)
[2019-11-10] MEDS: PANTOPRAZOLE 40 MG (PROTONIX) VIAL IV SCH (08:08)
[2019-11-10] MEDS: ALBUTEROL/IPRATROP (COMBIVENT RESPIMAT) 4 GM INHALER INH SCH ×2 (08:09→10:53)
--- NOTE | 2019-11-10 08:44 | Diagnostic Imaging Report ---
INDICATION: Shortness of breath Portable chest 3:36 AM There is peripheral infiltrates in both lungs, worse on the right than on the left but these have improved compared to 11/07/2019. There is no effusion. IMPRESSION: Bilateral peripheral alveolar consolidations have shown some improvement since 11/07/2019. Dictated by: Dictated on workstation # [id number]
[2019-11-10 11:51] VITALS: BP 134/74
--- NOTE | 2019-11-10 11:59 | NUR ---
PATIENT WALKED 200 FEET ON ROOM AIR. PATIENT DIDN'T REQUIRE OXYGEN AT THIS TIME.
--- NOTE | 2019-11-10 14:00 | NUR ---
TREVON GALICIA V demonstrates understanding of discharge instructions and accurately returns instructions upon questioning. Copy of Post-Discharge Instructions and Medication Discharge Instructions given to . TREVON GALICIA V is able to manage continuing needs after discharge. Patients belongings returned to . Skin dry and intact; no breakdown noted. Patient discharged from [facility] on [id number] . TREVON GALICIA V left floor via WC, accompanied by STAFF.
[2019-11-10 14:24] VITALS: BP 134/74
--- NOTE | 2019-11-10 14:35 | Discharge Summary ---
Discharge Summary Hospital Course Was the Problem List Reviewed?: Yes Problems/Dx: (1) COVID-19 Status: Acute Hospital Course Date of Admission: Nov 06, 2019 at 11:55 Admission Diagnosis : COVID-19 Family Physician/Provider: Date of Discharge: 11/10/19 Discharge Diagnosis: COVID-19 Hospital Course: Isai Pierson is a 54-year-old male who presented with shortness of breath and was admitted with COVID-19. He was outside of the window for receiving Remdesivir. He was treated with Decadron. His acute respiratory failure with hypoxia resolved. He was evaluated by respiratory therapy and did not require any oxygen at the time of discharge. He was discharged home where he should quarantine. The health department should be in contact with him with further recommendations. He will need to follow-up with his primary care physician. Labs and Pending Lab Test: Laboratory Tests 11/10/19 04:50: White Blood Count 14.0H, Red Blood Count 5.27, Hemoglobin 15.5, Hematocrit 45, Mean Corpuscular Volume 86, Mean Corpuscular Hemoglobin 29, Mean Corpuscular Hemoglobin Concent 34, Red Cell Distribution Width 12.5, Platelet Count 535H, Mean Platelet Volume 9.1, Neutrophils (%) (Auto) 70, Lymphocytes (%) (Auto) 15, Monocytes (%) (Auto) 13H, Eosinophils (%) (Auto) 1, Basophils (%) (Auto) 1, Neutrophils # (Auto) 9.8H, Lymphocytes # (Auto) 2.1, Monocytes # (Auto) 1.8H, Eosinophils # (Auto) 0.1, Basophils # (Auto) 0.1, Sodium Level 138, Potassium Level 3.9, Chloride Level 107, Carbon Dioxide Level 21, Anion Gap 10, Blood Urea Nitrogen 24H, Creatinine 0.80, Estimat Glomerular Filtration Rate > 60, BUN/Creatinine Ratio 30, Glucose Level 109H, Calcium Level 8.5, Corrected Calcium 9.1, Phosphorus Level 3.6, Magnesium Level 2.2, Total Bilirubin 0.5, Aspartate Amino Transf (AST/SGOT) 149H, Alanine Aminotransferase (ALT/SGPT) 290H , Alkaline Phosphatase 91, Total Protein 6.6, Albumin 3.2 Microbiology 11/06/19 MRSA Screen - Final, Complete MRSA not isolated 11/06/19 Blood Culture - Preliminary, Resulted No growth Home Meds Active No Active Prescriptions or Reported Medications Assessment/Pt Instructions You will be required to quarantine when you go home. The health department will be in contact with you. Follow-up with your primary care physician. Discharge Planning: <30 minutes discharge planning Discharge Instructions Discharge Diet: No Restrictions Activity as Tolerated: Yes Discharge Physical Examination Vital Signs Vital Signs Date Time Temp Pulse Resp B/P (MAP) Pulse Ox O2 Delivery O2 Flow Rate FiO2 11/10/19 14:24 35.9 86 20 134/74 92 Room Air 2.00 11/10/19 08:04 General Appearance: No Apparent Distress, Obese HEENT: PERRL/EOMI, Pharynx Normal Respiratory: Lungs Clear, Normal Breath Sounds, No Respiratory Distress Cardiovascular: Regular Rate, Rhythm, No Edema, No Murmur Gastrointestinal: Normal Bowel Sounds, Non Tender, Soft Extremity: Normal Inspection, Non Tender, No Pedal Edema Skin: Normal Color, Warm/Dry Neurologic/Psychiatric: Alert, Oriented x3, No Motor/Sensory Deficits, Normal Mood/Affect Allergies: Coded Allergies: No Known Drug Allergies (Unverified , 11/06/19) Discharge Summary Date of Admission Nov 06, 2019 at 11:55 Date of Discharge Nov 10, 2019 at 14:00 Discharge Date: Nov 10, 2019 Discharge Time: 14:00 Admission Diagnosis COVID-19 Discharge Diagnosis (1) COVID-19 Status: Acute Clinical Quality Measures DVT/VTE Risk/Contraindication: Risk Factor Score Per Nursin RFS Level Per Nursing on Admit: 4+=Very High DAYSI MARTINEZ MD Nov 10, 2019 14:35
[2019-11-11] MEDS ORDERED: PANTOPRAZOLE 40 MG (PROTONIX) TAB PO SCH (09:00)
== END 2019-11-10 14:00 | disposition home or self-care (01) | DRG 177 ==
LOC: EDUNIT# 08:57 → ER 09:05 → ICU 11:55 → 4TH 11-08 10:30
PROVIDERS: ADMIT Internal Medicine; ATTEND Internal Medicine
DX: U07.1 COVID-19 (principal); J12.89 Other viral pneumonia; J96.01 Acute respiratory failure with hypoxia; K21.9 Gastro-esophageal reflux disease without esophagitis; R79.1 Abnormal coagulation profile
CPT/HCPCS: 36415; 36600; 71045; 71275; 80053; 82728; 82805; 83605; 83615; 83735; 84100; 84145; 85007; 85025; 85027; 85379; 85610; 85730; 86141; 87040; 87081; 94640; 94761